=== PATIENT | male | born 1960 | race Caucasian/White ===

== ENCOUNTER 2016-11-21 06:05 | Inpatient (IN) | payer OTHER ==
[~2016-11-21] VITALS: Ht 177.8 cm; Wt 72.8 kg
[2016-11-21 06:17] VITALS: BP 103/59; PULSE 118; RESP 26; O2SAT 84
--- NOTE | 2016-11-21 06:19 | ED.REPORT ---
HPI-General Illness Date of Service Nov 21, 2016 ED Provider: Willem Espino MD 56 year old male with a history of esophageal cancer stage 4 on chemotherapy ( last chemo 11/03/16) and an esophageal stent who presents due to 3 days of cough (with blood) and SOB. Chest x-ray obtained by PCP, Dr. Barry, 2 days ago demonstrated increased interstitial markings thought to be consistent with pneumonia or carcinomatosis. He was started on Levofloxacin and has been taking this as directed. Pt does not have significant pain but does have slight pain with deep inspiration. Pt has insomnia secondary to symptoms. Associated symptoms include dry mouth, decreased appetite, nausea and edema (4 days). Pt was not able to get his most recent chemotherapy treatment 4 days ago due to low platelets and increased edema. Pt plans to discontinue chemotherapy and be placed on hospice. Pt denies fever and chills. 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 Other Social History: Ambulatory Status Independent Review of Systems Full Review of Systems Constitutional: Denies: Chills, Fever Respiratory: Reports: Prod cough, bloody, Shortness of breath Cardiovascular: Reports: Edema, Denies: Chest pain GI: Reports: Nausea, Denies: Diarrhea, Vomiting Complete sys rev & neg: except as marked. Physical Exam Vital Signs Vital Signs Date Time Temp Pulse Resp B/P Pulse Ox O2 Delivery O2 Flow Rate FiO2 11/21/16 06:17 36.5 118 26 103/59 84 Room Air Initial VS: Reviewed Abdomen / GI: Soft, Non-tender, No guarding, No rebound, No distention Skin: Warm, Dry Neurologic: Alert, Oriented General/Constitutional: Awake, Alert Appearance / Presentation: Positive: Cachectic, Ill appearing/not toxic Head / Eyes: Atraumatic, Normocephalic, PERRL Mouth: Positive: Mucous membranes dry Neck: Atraumatic, Full range of motion Resp Distress / Stridor: Positive: Resp distress moderate (Slightly tachypneic) Coarse throughtout crackles L lung base 2L O2 with sat 93% Cardiovascular: Regular rhythm, Heart sounds NL, No murmurs, Peripheral circulation NL, Pulses = bilaterally Heart Rate / Rhythm: Positive: Tachycardia Lower extremities: 2+ pitting edema to bilateral lower extremitties up to knees. No unilateral calf swelling. No lateralized calf erythema or tenderness. Interpretation & Diagnostics Lab Results Interpretation Result Diagram: 11/21/16 0725 11/21/16 0725 Test 11/21/16 07:25 White Blood Count 32.4th/mm3 (3.8-10.1) Red Blood Count 4.10mil/mm3 (4.40-5.80) Hemoglobin 11.1g/dL (13.8-17.2) Hematocrit 33.9% (41.0-50.0) Mean Corpuscular Volume 82.7fL (81-100) Mean Corpuscular Hemoglobin 27.1pg (27.0-35.0) Mean Corpuscular Hemoglobin Concent 32.7% (32.0-37.0) Red Cell Distribution Width 19.4% (12.3-15.4) Platelet Count 31bil/L (150-400) Neutrophils (%) (Auto) 85% (40-74) Lymphocytes (%) (Auto) 2% (14-46) Monocytes (%) (Auto) 3% (4-12) Eosinophils (%) (Auto) 0% (0-5) Basophils (%) (Auto) 0% (0-3) Band Neutrophils % 7% (1-5) Metamyelocytes % 3% (0-0) Sodium Level 130mEq/L (134-144) Potassium Level 4.7mEq/L (3.5-5.2) Chloride Level 89mEq/L (97-108) Carbon Dioxide Level 21mmol/L (18-29) Blood Urea Nitrogen 59mg/dL (6-24) Creatinine 1.33mg/dL (0.76-1.27) Estimat Glomerular Filtration Rate 59mL/min (>59) Glucose Level 112mg/dL (60-99) Lactic Acid Level 3.2mmol/L (0.4-2.0) Calcium Level 7.3mg/dL (8.5-10.1) Total Bilirubin 5.2mg/dL (0.0-1.2) Aspartate Amino Transf (AST/SGOT) 102U/L (0-50) Alanine Aminotransferase (ALT/SGPT) 48U/L (0-44) Alkaline Phosphatase 1194U/L (25-150) Troponin T 0.175ug/L (0.0-0.011) Pro-B-Type Natriuretic Peptide 1935pg/mL (0-210) Total Protein 6.2g/dL (6.4-8.4) Albumin 2.3g/dL (3.4-5.0) General Lab Results Interp 1: Labs reviewed ECG Interpretation Time: 06:22 Interpreted by: ED physician Normal ECG Interpretation: Normal axis, Normal intervals Rhythm / Conduction: Tachycardia (with a rate of 118) X-Ray Chest Interpretation Chest Xray Interpretation: Worse in appearance of bilat pneumonia vs. pulmonary edema cs. carcinomatosis View: AP & lat Interpretation / Wet Read by: Wet read ED physician Re-Eval/Medical Decision Med Decision/Clinical Course 56 year old male with a history of esophageal cancer stage 4 on chemotherapy ( last chemo 11/03/16) and an esophageal stent who presents due to 3 days of cough (with blood) and SOB. Chest x-ray obtained by PCP, Dr. Barry, 2 days ago demonstrated increased interstitial markings thought to be consistent with pneumonia or carcinomatosis. He was started on Levofloxacin and has been taking this as directed. Symptoms have been progressively worsening and he has become increasingly dyspneic on exertion. He is DNR/DNI and goals are comfort care though he would like to be treated for infectious processes. 2L O2 with sat 93%, 85% upon arrival, 95% 2 days ago in office. The patient is tachycardic and borderline hypotensive. Chest x-ray demonstrated worsening bilateral pneumonia versus possible pulmonary edema/carcinomatosis. Patient received the blow medications: Vancomycin, Zosyn, IV fluids, Dilaudid Laboratory studies notable as below: WBC 32.4 Plt 31 Troponin 0.175 Hct 33.9 7% bands Na 130 BUN 59 creat 1.33 Lactate 3.2 Elevated transaminases Total bili 5.2 BNP 1935 Overall presentation at this time most consistent with bilateral pneumonia. Patient is receiving aggressive IV antibiotic therapy. I had a discussion about his goals of care which are primarily comfortable at this time he would like to receive IV antibiotics should this potentially lead to significant improvement. He was placed on 6 L by nasal cannula due to progressive oxygen requirement here in the emergency department . Oxygen saturation greater than 92%. Fluids were judiciously given the concern about possible underlying acute cardiac process and pulmonary edema though this seems less consistent with the overall critical picture. His troponin was elevated but at this time no aggressive therapy was administered in regards to his cardiac status as this is not consistent with his goals of care. He was discussed with the admitting hospitalist and we opted to admit to the [facility] as ICU level of care is not consistent with his wishes at this time. He was transferred in critical but stable condition. Time of Eval: 06:45 Re-Evaluation/Progress Note: Recommended admission. Pt and family understands and agrees with plan. All questions addressed. Consultation #1: Referral / Consult Name: Svitlana Londono DO Consulted With: Hospitalist Call Returned at: 07:51 [place]ining Stitcher: Will see patient, Agrees with eval, Agrees with plan, Accepts admit Consultation #2: Referral / Consult Name: Svitlana Londono DO Consulted With: Hospitalist Call Returned at: 09:19 Note: Updated of labs Counseled Regarding: Diagnosis, Lab results, Need for admission Discharge & Departure Primary Impression: Pneumonia Pneumonia type: due to unspecified organism Laterality: bilateral Lung location: unspecified part of lung Qualified Code: J18.9 - Pneumonia, unspecified organism Additional Impressions: Hypoxia Esophageal cancer Respiratory distress Acute renal failure Acute renal failure type: unspecified Qualified Code: N17.9 - Acute kidney failure, unspecified Leukocytosis Leukocytosis type: unspecified Qualified Code: D72.829 - Elevated white blood cell count, unspecified Bandemia Elevated lactic acid level Elevated brain natriuretic peptide (BNP) level Disposition: ADMITTED TO HOSPITAL Discharge Condition All VS Reviewed: Yes Referrals: Tavo Barry MD (PCP) Hollie Castro MD Crit Care Except Billable Proc Time Spent: 105-134 minutes Services Performed: Patient management by me, Time spent at bedside, Reviewing test results, Reviewing imaging, Discussing patient care, Documentation in record, Time with fam/surrogate Scribe Attestation Portions of this note were transcribed by Stephanie Grey. I, (Dr. Espino) personally performed the history, physical exam and medical decision-making; I reviewed and confirmed the accuracy of the information in the transcribed note. Signed by: Stephanie Grey. Scribe, 11/21/2016, 3137 copies to: Tavo Barry MD; Hollie Castro MD, Beck O MD Nov 21, 2016 06:19 Stephanie Grey Nov 21, 2016 06:31
[2016-11-21] MEDS ORDERED: 0.9% Sodium Chloride 1,000 ML IV ONE (06:41)
[2016-11-21] MEDS ORDERED: Ondansetron 2 mg/mL 2 mL Inj IVPUSH PRN ×2 (06:45→09:20)
[2016-11-21] MEDS ORDERED: Piperacillin-Tazo 3.375 Gm Inj 3.375 GM in Dextrose 5% Minibag Plus 50 ML IV ONE (06:45)
[2016-11-21] MEDS ORDERED: Vancomycin Dose per Pharmacist XX ONE (06:45)
[2016-11-21] MEDS ORDERED: Alum-Mag Hydrox-Simeth 30 mL Suspension PO PRN ×2 (06:45→09:20)
[2016-11-21 08:02] LABS: EOSINOPHILS % (AUTO) 0 % (0-5); Mean Corpuscular Hemoglobin 27.1 pg (27.0-35.0); Mean Corpuscular Volume 82.7 fL (81-100)
--- NOTE | 2016-11-21 08:06 | DRSVH ---
PROCEDURE: X-RAY CHEST, TWO VIEWS ([id number]) INDICATIONS: 56 year-old with esophageal cancer presents with cough. TECHNIQUE: 2 views of the chest were acquired. COMPARISON: [facility], CR, XR CHEST 1V PORTABLE, 10/01/2016, 8:50 AM. [facility], CR, XR CHEST 2VW, 11/19/2016, 17:00. FINDINGS: Surgical changes and devices: There is a stent at midline likely within the esophagus. There is a Po rt-A-Cath on the left with the tip in the superior vena cava Lungs and pleura: Bilateral diffuse air space infiltrates consistent with bilateral pneumonia. Overa ll, there is no significant change from the last exam. Probable small pleural effusions. No pneumotho rax. Mediastinum: Mediastinal contours are normal. Heart size is normal. Bones and chest wall: No suspicious bony abnormalities. Soft tissues appear unremarkable. IMPRESSION: Bilateral pneumonia. 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 Dictated by: Benny Lerner M.D. on 11/21/2016 at 8:03 Approved by: Benny Lerner M.D. on 11/21/2016 at 8:06
[2016-11-21] MEDS ORDERED: HYDROmorphone 1 mg/mL Inj IVPUSH ONE (08:40)
[2016-11-21 08:47] LABS: BASOPHILS % (AUTO) 0 % (0-3); MONOCYTES % (AUTO) 3 % (4-12); NEUTROPHILS % (AUTO) 85 % (40-74); Platelet Count 31 bil/L (150-400)
[2016-11-21 08:48] LABS: TROPONIN T 0.175 ug/L (0.0-0.011)
--- NOTE | 2016-11-21 09:00 | NUR ---
IV therapy note: after cleaning skin with chloraprep, skin was became red. skin the prepped with alcohol swab stick. family and md aware.
[2016-11-21] MEDS ORDERED: Polyethylene Glycol (PEG) 17 Gm Powder PO PRN (09:20)
[2016-11-21] MEDS ORDERED: 0.9% Sodium Chloride 1,000 ML IV SCH (09:20)
[2016-11-21 11:20] VITALS: BP 107/67; PULSE 109; RESP 24; O2SAT 90
[2016-11-21] MEDS ORDERED: OXYC1TAB24 PO (11:23)
[2016-11-21] MEDS ORDERED: ONDA8TAB10 PO (11:23)
[2016-11-21] MEDS ORDERED: IBUP100O14 PO (11:23)
[2016-11-21] MEDS ORDERED: LEVO750T39 PO (11:23)
[2016-11-21] MEDS ORDERED: ALPR0.254 PO (11:23)
[2016-11-21] MEDS ORDERED: FENT1PAT6 TRANSDERM (11:27)
[2016-11-21] MEDS: oxyCODONE-Acetamin 5-325 mg Tablet PO PRN ×2 (13:20→17:27)
--- NOTE | 2016-11-21 15:46 | NUR ---
Admit note- Received patient from Emergency dept. via bed accompanied with . Alert and oriented. O2 on at 4 liters nasal canula. Spo2 88-90%. Patient denied pain initially, but then did complain that he did have discomfort in his shoulders. MD notified and orders received for pain med, which was helpful. Oriented to room, call light, etc.
[2016-11-21 15:58] LABS: APPEARANCE,URINE CLEAR (CLEAR,HAZY); COLOR,URINE DARK YELLOW (YELLOW)
[2016-11-21 15:59] LABS: OCCULT BLOOD,URINE NEGATIVE (NEGATIVE)
[2016-11-21 16:00] LABS: ICTOTEST,URINE POSITIVE (Negative)
[2016-11-21] MEDS ORDERED: Ondansetron 8 mg ODT Tablet PO PRN (16:15)
[2016-11-21] MEDS ORDERED: IBUPROFEN 20 MG/ML PO PRN (16:15)
[2016-11-21] MEDS ORDERED: ALPRAZolam 0.25 mg Tablet PO PRN (16:20)
[2016-11-21] MEDS ORDERED: Vancomycin Serum Trough XX ONE (16:40)
--- NOTE | 2016-11-21 16:51 | PCM.CONPHA ---
Subjective History of Present Illness Patient is an 56 y.o. Male receiving vancomycin for pneumonia. Concurrent abx include: zosyn. WBC count is elevated at 32. Patient is 73 kg, 70 inches tall with a SCr of 1.33 mg/dL-- estimated CrCl of 65 mL/min. Based on patient parameters vancomycin will be dosed at 1000 mg q12 hours Trough will be drawn before the 4th dose on 11/21@1930. Pharmacy will follow daily and adjust as appropriate. Thank you for the consult in the care of this patient. RTM PharmD Objective Vital Signs Date Time Temp Pulse Resp B/P Pulse Ox O2 Delivery O2 Flow Rate FiO2 11/21/16 11:20 36.5 109 24 107/67 90 Nasal Cannula 4.00 11/21/16 09:55 111 20 92/59 89 Room Air 4 11/21/16 06:17 36.5 118 26 103/59 84 Room Air Weight (Kilograms): 72.800 Height (Feet): 5 Height (Inches): 10.00 Test 11/21/16 07:25 11/21/16 15:16 White Blood Count 32.4th/mm3 (3.8-10.1) Red Blood Count 4.10mil/mm3 (4.40-5.80) Hemoglobin 11.1g/dL (13.8-17.2) Hematocrit 33.9% (41.0-50.0) Mean Corpuscular Volume 82.7fL (81-100) Mean Corpuscular Hemoglobin 27.1pg (27.0-35.0) Mean Corpuscular Hemoglobin Concent 32.7% (32.0-37.0) Red Cell Distribution Width 19.4% (12.3-15.4) Platelet Count 31bil/L (150-400) Neutrophils (%) (Auto) 85% (40-74) Lymphocytes (%) (Auto) 2% (14-46) Monocytes (%) (Auto) 3% (4-12) Eosinophils (%) (Auto) 0% (0-5) Basophils (%) (Auto) 0% (0-3) Band Neutrophils % 7% (1-5) Metamyelocytes % 3% (0-0) Sodium Level 130mEq/L (134-144) Potassium Level 4.7mEq/L (3.5-5.2) Chloride Level 89mEq/L (97-108) Carbon Dioxide Level 21mmol/L (18-29) Blood Urea Nitrogen 59mg/dL (6-24) Creatinine 1.33mg/dL (0.76-1.27) Estimat Glomerular Filtration Rate 59mL/min (>59) Glucose Level 112mg/dL (60-99) Lactic Acid Level 3.2mmol/L (0.4-2.0) Calcium Level 7.3mg/dL (8.5-10.1) Total Bilirubin 5.2mg/dL (0.0-1.2) Aspartate Amino Transf (AST/SGOT) 102U/L (0-50) Alanine Aminotransferase (ALT/SGPT) 48U/L (0-44) Alkaline Phosphatase 1194U/L (25-150) Troponin T 0.175ug/L (0.0-0.011) Pro-B-Type Natriuretic Peptide 1935pg/mL (0-210) Total Protein 6.2g/dL (6.4-8.4) Albumin 2.3g/dL (3.4-5.0) Urine Color Dark yellow (YELLOW) Urine Appearance Clear (CLEAR,HAZY) Urine pH 5.0 (5.0-8.0) Urine Specific [place] 1.025 (1.003-1.035) Urine Protein Negativemg/dL (NEG,TRACE) Urine Glucose (UA) Negativemg/dL (NEGATIVE) Urine Ketones Negativemg/dL (NEGATIVE) Urine Occult Blood Negative (NEGATIVE) Urine Nitrite Negative (NEGATIVE) Urine Bilirubin Moderate (NEGATIVE) Urine Ictotest Positive (Negative) Urine Urobilinogen 4.0mg/dL (NORMAL) Urine Leukocyte Esterase Negative (NEGATIVE) Urine RBC 0-2/hpf (0-2) Urine WBC 0-5/hpf (0-5) Urine Epithelial Cells Few/hpf (NONE-MOD) Urine Crystals None seen (NONE SEEN) Urine Bacteria Few/hpf (NONE-FEW) Urine Hyaline Casts None/lpf (NONE) Urine Granular Casts Occasional (NONE SEEN) Urine Waxy Casts None seen (NONE SEEN) Urine Red Blood Cell Casts None seen (NONE SEEN) Urine White Blood Cell Casts Occasional (NONE SEEN) Urine Mucus None seen (None Seen) Urine Trichomonas None seen (NONE SEEN) Urine Yeast None (NONE SEEN) Urinalysis Comment None Urine Culture Reflexed Not indicated Royce Zheng Nov 21, 2016 16:51
[2016-11-21 17:17] VITALS: BP 120/83; PULSE 110; RESP 24; O2SAT 95
--- NOTE | 2016-11-21 17:28 | PCM.HPMED ---
Subjective Date of Service Nov 21, 2016 Primary Provider: Admitting Physician: Svitlana Londono DO Primary Care Physician: Tavo Barry MD Attending Physician: Svitlana Londono DO Chief Complaint: Increasing dyspnea Allergies Coded Allergies: No Known Allergies (Unverified , 11/21/16) PMH Social History Hx Alcohol Use: No Hx Substance Use: No Hx Tobacco Use: No Smoking Status: Never Smoker Exam Vital Signs Vital Sign - Last Date Time Temp Pulse Resp B/P Pulse Ox O2 Delivery O2 Flow Rate FiO2 11/21/16 11:20 36.5 109 24 107/67 90 Nasal Cannula 4.00 Lab and Diagnostics Result Diagram: 11/21/1672411/21/16724 Assessment & Plan HPI: 56-year-old male presented to the hospital today with the complaint of increasing shortness of breath. The patient does have esophageal cancer and is currently being treated with chemotherapy. The patient stated that for the last few days he has had increasing shortness of breath, lower extremity swelling, cough, lethargy, insomnia, nausea, and decreased appetite but denies any chest pain, fever, chills. A chest x-ray was obtained 2 days ago by his PCP Dr. Barry and demonstrated increased interstitial markings thought to be consistent with pneumonia or carcinomatosis. The patient was started on levofloxacin 750 daily as an outpatient but the patient feels that this has not been helping. The patient also states that he was supposed to have chemotherapy 4 days ago however due to low platelets, increasing edema, and hyponatremia he was unable to receive his treatment. The patient is scheduled to have a stent performed on Wednesday to help enlarge the esophagus so that he is able to eat solid foods. However the patient does plan on possibly switching to hospice care. Home medications: Alprazolam, Zofran, Percocet Allergies: Drug: Patient denies any drug allergies Food: Patient denies any food allergies Enviornmental: Patient reports [place] allergy PMHx: Stage IV esophageal cancer with metastasis to the lungs bone in his currently on chemotherapy Anxiety PSHx Esophageal stent FHx: Noncontributory SocHx: Tobacco history: Former smoker quit 15 years ago, previous half pack or less per day smoker for 15 years Alcohol use: Patient denies current usage former social drinker Drug use: Patient denies ROS: A 12point revew of systems was performed or attempted to be performed. Please see HPI for perninent positives. Physical Exam: GEN: Patient was awake, alert, responding appropriately to questions, lethargic HEENT: PERRLA, EOMI, Neck soft supple, trachea midline, CV: +S1/S2, RRR, no murmurs auscultated Respiratory: Coarse breath sounds bilaterally, no wheezes, rales, rhonchi GI: +bowel sounds x4, soft, compressible, non TTP EXT: no c/c +2 pitting edema Neuro: CN II-XII grossly intact Psych: mood and affect were appropriate Assessment and Plan 56-year-old male with esophageal carcinoma presenting with interstitial pneumonia Pneumonia with leukocytosis -- Start Zosyn and vancomycin -- Give oxygen to maintain saturations at 92% and above -- Blood cultures pending -- Follow-up lactate -- Follow-up pro-calcitonin -- Magnesium pending -- We will continue to monitor Hyponatremia -- Sodium 130 -- Continue IV fluids for 1 L Acute kidney injury -- Creatinine 1.33 -- Continue IV fluids Hypocalcemia -- Calcium 7.3 -- We will start calcium carbonate 3 times a day with meals Elevated troponin -- Troponin 0.175 -- This is most likely a troponin leak secondary to the patient's elevated creatinine and in the setting of metastatic carcinoma we will continue to monitor for any further signs of cardiac events Esophageal carcinoma -- Continue with current pain management regimen DVT prophylaxis SCDs Diet regular as tolerated Code Status: DO NOT RESUSCITATE/DO NOT INTUBATE Svitlana Londono DO Nov 21, 2016 17:28
[2016-11-21] MEDS: Piperacillin-Tazo 3.375 Gm Inj 3.375 GM in Dextrose 5% Minibag Plus 50 ML IV SCH (17:33)
[2016-11-21 19:50] VITALS: BP 118/76; PULSE 110; RESP 20; O2SAT 91
[2016-11-21] MEDS: HYDROmorphone 1 mg/mL Inj IVPUSH PRN (20:28)
[2016-11-21] MEDS ORDERED: Vancomycin Inj 1,000 MG in IV Premix 1 EACH IV SCH (20:30)
--- NOTE | 2016-11-21 22:28 | NUR ---
Difficulty Swallowing patient reporting a more difficult time swallowing over the last several days. patient coughing and spitting with small sips of water or Gatorade. Attempted to give percocet crushed in Gatorade. It took several minutes to swallow and a large portion of the medication came back up with coughing/sputum. IV dilaudid was more effective in controlling pain. Recommendation: consider swallow evaluation in the morning.
[2016-11-22] MEDS ORDERED: 0.9% Sodium Chloride 100 ML ONE (00:31)
[2016-11-22 00:34] VITALS: BP 126/80; PULSE 106; RESP 23; O2SAT 90
[2016-11-22] MEDS: Piperacillin-Tazo 3.375 Gm Inj 3.375 GM in Dextrose 5% Minibag Plus 50 ML IV SCH (00:51)
[2016-11-22] MEDS: HYDROmorphone 1 mg/mL Inj IVPUSH PRN ×2 (02:05→06:24)
--- NOTE | 2016-11-22 03:13 | NUR ---
CARE/COMFORT Resumed care of patient at 2300. At that time, pt had no complaints, was vague about level of comfort. When asked about pain, pt stated "It's okay right now. I am as comfortable as I can be." Pain medications were only given at 0200 during the night--2mg dilaudid. Pt appears to drift in and out of sleep after pain medication administration. Pt continues to be interested in care, asking about upcoming medications and what they are used for. Pt stated "This is all so new to me. I've never been in the hospital before." RN encouraged pt to ask questions about care and participate as much as he could. Hourly rounding in place.
[2016-11-22 04:47] LABS: Mean Corpuscular Hemoglobin 27.1 pg (27.0-35.0); Mean Corpuscular Volume 84.7 fL (81-100)
[2016-11-22 05:02] LABS: BASOPHILS % (AUTO) 0 % (0-3); EOSINOPHILS % (AUTO) 0 % (0-5); NEUTROPHILS % (AUTO) 89 % (40-74); Platelet Count 24 bil/L (150-400)
[2016-11-22 05:03] LABS: MONOCYTES % (AUTO) 3 % (4-12)
[2016-11-22 05:28] VITALS: BP 125/73; PULSE 110; RESP 20; O2SAT 92
[2016-11-22] MEDS ORDERED: Vancomycin Dose per Pharmacist XX SCH (08:30)
--- NOTE | 2016-11-22 09:53 | NUR ---
Pt Arrived in pt room at 0840, found pt breathing labored and heavily with no oxygen mask on. Checked O2 and was at 35%. Placed a non rebreather mask on and put him on 7L and O2 came up to 60%. RT paged at 0900. Dr Londono paged and notified that pt was declining. Doctor arrived to room at 0910. called at 0905. Pt transferred to private room at 0920. arrived at 0925, and Dr Londono was paged. Pt was becoming agitated, and restless. 2mg of Morphine was administered per Dr Londono orders for comfort. , daughter, and mother were at bedside. Family wanted O2 mask off they didn't want to see him struggle. O2 removed per family request. Pt at 0953. Dr Londono and pt nurse were present at time of expiration. All belongings taken home with , Authority for release of body form signed by . All telephone calls were made by nurse, and UA. Addendum: 11/22/16 at 1254 by RUFINO SLOAN RN Pt cleaned up, changed, PIV removed. Saline in eyes, taped close. Security picked up body at 1250.
--- NOTE | 2016-11-22 11:02 | NUR ---
Social Work Note: Screen Note/Discharge Data& Assessment: EMR reviewed. Jose Petty is a 56 year old male admitted on 11/21/2016 for pneumonia and hypoxia. Per MD in morning rounds, pt has passed. Per RN pt was opening with hospice, SW called Katelin at Hospice and notified her of pt passing. SW available if any needs arise with pt family. SW to continue to follow if any needs arise. Plan: Per MD in morning rounds, pt has passed. SW available if any needs arise with pt family. SW to continue to follow if any needs arise. UMAIR Mejia
--- NOTE | 2016-11-22 11:38 | NUR ---
[facility] from [facility] call, info given that she requested. After family leaves will rinse eyes with NS and paper tape shut. Family phone numbers given to Christie for contact. Paper chart to be left on unit until directed.
--- NOTE | 2016-11-22 13:41 | PCM.DC.MEX ---
Discharge Summary Date of Service Nov 22, 2016 Dates of Hospitalization Date of Hospital Admission Nov 21, 2016 at 08:04 Date of Expiration: Nov 22, 2016 Time of Expiration: 09:53 Providers: Admitting Physician: Svitlana Londono DO Primary Care Physician: Tavo Barry MD Attending Physician: Svitlana Londono DO Diagnosis at Time of Organ failure secondary to Esophageal Cancer Additional Diagnosis Pneumonia with leukocytosis Hyponatremia Acute kidney injury Hypocalcemia Elevated troponin Esophageal carcinoma Brief History 56 year old male with end stage esophageal carcinoma presented for antibiotic therapy for pneumonia. Hospital Course 56-year-old male presented to the hospital with increasing shortness of breath secondary to pneumonia. The patient has been diagnosed with this age esophageal carcinoma currently on chemotherapy. The patient was diagnosed by Dr. Barry with pneumonia and was started on an outpatient course of levofloxacin 750 mg daily. The patient was not responding and it was thought that the patient should be admitted for IV antibiotic therapy. The patient was scheduled to be placed on hospice on . The patient wanted to undergo a stenting procedure so that he would be able to eat whole foods again. The patient was started on Rocephin and Vancomycin in the emergency room and continued once admitted. This morning the patient was starting to desat and was not able to maintain oxygen saturations even on a Venturi mask. The was called and immediately showed up with the patient's mother and daughter. The patient was given 2 mg of morphine for comfort as he was having agonal breathing and audible Rales and rhonchi. The patient about 45min after the family arrived. No resuscitative measures were administered as per request by the patient and his family. Exam Test 11/21/16 07:25 11/21/16 15:16 11/21/16 18:05 11/21/16 19:35 Troponin T 0.175ug/L (0.0-0.011) Pro-B-Type Natriuretic Peptide 1935pg/mL (0-210) Urine Color Dark yellow (YELLOW) Urine Appearance Clear (CLEAR,HAZY) Urine pH 5.0 (5.0-8.0) Urine Specific [place] 1.025 (1.003-1.035) Urine Protein Negativemg/dL (NEG,TRACE) Urine Glucose (UA) Negativemg/dL (NEGATIVE) Urine Ketones Negativemg/dL (NEGATIVE) Urine Occult Blood Negative (NEGATIVE) Urine Nitrite Negative (NEGATIVE) Urine Bilirubin Moderate (NEGATIVE) Urine Ictotest Positive (Negative) Urine Urobilinogen 4.0mg/dL (NORMAL) Urine Leukocyte Esterase Negative (NEGATIVE) Urine RBC 0-2/hpf (0-2) Urine WBC 0-5/hpf (0-5) Urine Epithelial Cells Few/hpf (NONE-MOD) Urine Crystals None seen (NONE SEEN) Urine Bacteria Few/hpf (NONE-FEW) Urine Hyaline Casts None/lpf (NONE) Urine Granular Casts Occasional (NONE SEEN) Urine Waxy Casts None seen (NONE SEEN) Urine Red Blood Cell Casts None seen (NONE SEEN) Urine White Blood Cell Casts Occasional (NONE SEEN) Urine Mucus None seen (None Seen) Urine Trichomonas None seen (NONE SEEN) Urine Yeast None (NONE SEEN) Urinalysis Comment None Urine Culture Reflexed Not indicated Lactic Acid Level 2.9mmol/L (0.4-2.0) Magnesium Level 2.7mg/dL (1.6-2.6) Hold Red Top Tube Received (Received) Test 11/22/16 04:30 11/22/16 09:31 White Blood Count 35.6th/mm3 (3.8-10.1) Red Blood Count 3.65mil/mm3 (4.40-5.80) Hemoglobin 9.9g/dL (13.8-17.2) Hematocrit 30.9% (41.0-50.0) Mean Corpuscular Volume 84.7fL (81-100) Mean Corpuscular Hemoglobin 27.1pg (27.0-35.0) Mean Corpuscular Hemoglobin Concent 32.0% (32.0-37.0) Red Cell Distribution Width 20.0% (12.3-15.4) Platelet Count 24bil/L (150-400) Neutrophils (%) (Auto) 89% (40-74) Lymphocytes (%) (Auto) 3% (14-46) Monocytes (%) (Auto) 3% (4-12) Eosinophils (%) (Auto) 0% (0-5) Basophils (%) (Auto) 0% (0-3) Band Neutrophils % 2% (1-5) Metamyelocytes % 2% (0-0) Myelocytes % 1% (0-0) Sodium Level 135mEq/L (134-144) Potassium Level 4.3mEq/L (3.5-5.2) Chloride Level 96mEq/L (97-108) Carbon Dioxide Level 26mmol/L (18-29) Blood Urea Nitrogen 46mg/dL (6-24) Creatinine 0.97mg/dL (0.76-1.27) Estimat Glomerular Filtration Rate 85mL/min (>59) Glucose Level 107mg/dL (60-99) Calcium Level 6.8mg/dL (8.5-10.1) Total Bilirubin 5.3mg/dL (0.0-1.2) Aspartate Amino Transf (AST/SGOT) 100U/L (0-50) Alanine Aminotransferase (ALT/SGPT) 43U/L (0-44) Alkaline Phosphatase 1122U/L (25-150) Total Protein 5.6g/dL (6.4-8.4) Albumin 2.1g/dL (3.4-5.0) Procalcitonin 2.22ng/mL (See Comment) Hold Purple Top Tube Received (Received) Hold [place] Top Tube Received (Received) Time spent Greater than 35min Svitlana Londono DO Nov 22, 2016 13:41
[2016-11-22] MEDS ORDERED: Vancomycin Serum Trough XX ONE (19:30)
== END 2016-11-22 12:50 | disposition expired | DRG 194 ==
LOC: SED 06:05 → MOC 08:04
PROVIDERS: ADMIT Neuromusculoskeletal Medicine & OMM; ATTEND Neuromusculoskeletal Medicine & OMM
DX: J18.9 Pneumonia, unspecified organism (principal); C15.9 Malignant neoplasm of esophagus, unspecified; C78.00 Secondary malignant neoplasm of unspecified lung; C79.51 Secondary malignant neoplasm of bone; N17.9 Acute kidney failure, unspecified; E87.1 Hypo-osmolality and hyponatremia; Z92.21 Personal history of antineoplastic chemotherapy; Z66 Do not resuscitate; Z87.891 Personal history of nicotine dependence; E83.51 Hypocalcemia; D72.829 Elevated white blood cell count, unspecified